=== PATIENT | female | born 1970 | race Two or more races ===

== ENCOUNTER → 2024-09-02 | Emergency (ER) | payer OTHER ==
[~2024-09-02] VITALS: Ht 170.2 cm; Wt 59.0 kg
[~2024-09-02] MED LIST: TRAMADOL HCL 50 MG TABLET PO STA
== END | disposition home or self-care (01) ==
LOC: ER 20:50
DX: S42.211A Unspecified displaced fracture of surgical neck of right humerus, initial encounter for closed fracture (principal); W19.XXXA Unspecified fall, initial encounter; Y93.89 Activity, other specified; Y92.89 Other specified places as the place of occurrence of the external cause; Y99.8 Other external cause status; M79.601 Pain in right arm; M25.511 Pain in right shoulder